=== PATIENT | female | born 1980 | race Caucasian/White ===

== ENCOUNTER → 2016-12-25 | Outpatient (CLI) | payer OTHER ==
[~2016-12-25] MED LIST: ACET-1256 PO; IBUP-1050 PO
== END | disposition home or self-care (01) ==
LOC: C.PAPS 11:51
PROVIDERS: ATTEND Obstetrics & Gynecology
DX: Z12.4 Encounter for screening for malignant neoplasm of cervix (principal)

== ENCOUNTER → 2017-05-29 | Outpatient (CLI) | payer OTHER ==
[2017-05-29 13:24] LABS: HEMATOCRIT 36.3 % (37-47); MEAN CELL VOLUME 76.3 fL (80-100); MEAN CORPUSCULAR HEMOGLOBIN 23.5 pg (25-34); MEAN CORPUSCULAR HGB CONC 30.9 g/dl (32-36); MEAN PLATELET VOLUME 10.9 fL (7.4-10.4); PLATELET COUNT 375 K/uL (130-400); RED BLOOD COUNT 4.76 M/uL (4.2-5.4); WHITE BLOOD COUNT 5.31 K/uL (4.8-10.8)
[2017-05-29 14:06] LABS: ALT/SGPT 118 U/L (12-78); BLOOD UREA NITROGEN 8 mg/dl (7-18); BUN/CREATININE RATIO 9.2 (10-20); CALCIUM 9.2 mg/dl (8.5-10.1); CARBON DIOXIDE 26 mmol/L (21-32); CHLORIDE 107 mmol/L (98-107); GLUCOSE 103 mg/dl (70-99); SODIUM 140 mmol/L (136-145); TRIGLYCERIDES 88 mg/dl (0-150); VERY LOW DENSITY LIPOPROT CALC 18 mg/dl
[2017-05-29 14:16] LABS: ALB/GLOB RATIO 0.9 (0.9-2); ALKALINE PHOSPHATASE 182 U/L (45-117); AST/SGOT 21 U/L (15-37); CHOLESTEROL 182 mg/dl (0-200); CHOLESTEROL/HDL RATIO 3.3; HDL CHOLESTEROL 55 mg/dl; LDL CHOLESTEROL CALCULATED 109 mg/dl; THYROID STIMULATING HORMONE 0.696 uIu/ml (0.300-4.500)
[2017-05-29 16:22] LABS: FERRITIN 5.2 ng/ml (8.0-388.0)
[2017-05-30 06:09] LABS: ESTIMATED AVERAGE GLUCOSE 120 mg/dl; HA1C FLAG Normal (Normal)
--- NOTE | 2017-06-11 06:46 | CODING QUERY MEDICAL NECESSITY ---
SUPPORTING DIAGNOSIS NEEDED Ritter ROE, A supporting diagnosis is required for the test/procedure performed on this patient in order for us to be reimbursed by the patient's insurance. Please provide a supporting diagnosis for the following test/procedure listed below next to the test name along with your signature. *If there is no additional diagnosis for this patient that would support the following test/procedure please document that below next to the test/procedure. Test(s)/Procedure(s) that require a supporting diagnosis: * [id number] HEMO A1C DIAGNOSIS: DATE OF SERVICE: 05/29/17 Provider Signature: Date: Thank you Bharat Waddell [facility] Information Management Once completed, please kindly fax back to [phone] For questions please call [phone]
== END | disposition home or self-care (01) ==
LOC: C.LABBC 09:26
PROVIDERS: ATTEND Nurse Practitioner Adult Health
DX: Z00.00 Encounter for general adult medical examination without abnormal findings (principal); F41.9 Anxiety disorder, unspecified; D64.9 Anemia, unspecified; R73.01 Impaired fasting glucose

== ENCOUNTER → 2017-06-29 | Outpatient (CLI) | payer OTHER ==
[2017-06-29 11:34] LABS: ALKALINE PHOSPHATASE 105 U/L (45-117); ALT/SGPT 31 U/L (12-78); AST/SGOT 16 U/L (15-37)
== END | disposition home or self-care (01) ==
LOC: C.LABBC 08:09
PROVIDERS: ATTEND Nurse Practitioner Adult Health
DX: R79.89 Other specified abnormal findings of blood chemistry (principal)

== ENCOUNTER → 2017-08-26 | Day surgery (SDC) | payer OTHER ==
[2017-08-17 10:46] VITALS: Ht 167.6 cm; Wt 95.5 kg
[~2017-08-26] VITALS: Ht 167.6 cm; Wt 95.5 kg
[~2017-08-26] MED LIST changes: -ACET-1256 PO; +ATR25 PO; +DICY10CA12 PO; +FERR1TAB13 PO; +FLUT0.15 NAE; -IBUP-1050 PO; +LIDOCAINE HCL 2% 2 ML VIAL (20MG/ML) ONE; +METH500T PO; +MIDAZOLAM HCL 1 MG/ML 2ML VIAL ONE; +ONDANSETRON INJ 2 MG/ML 2 ML VIAL ONE; +PROPOFOL IV EMULSION 10 MG/ML 20 ML VIAL IV ONE; +SODIUM CHLORIDE 0.9% 500ML 500 ML IV ONE; +VNTHFA/IN INH
--- NOTE | 2017-08-26 10:48 | Endo History and Physical ---
History & Physical Date of Service: Aug 26, 2017. Chief Complaint: Anemia and Diarrhea Referring Physician: Alysa Hamlin History of Present Illness 37 yo CF who presents for EGD and Colonoscopy secondary to anemia and diarrhea. Past Surgical History Hx Cardiac Surgery: No Hx Internal Defibrillator: No Hx Pacemaker: No Hx Abdominal Surgery: Yes (D&C) Hx of Implantable Prosthesis: No Hx Post-Op Nausea and Vomiting: No Hx Cancer Surgery: No Hx Thoracic Surgery: No Hx Orthopedic: No Hx Urinary Tract Surgery: Yes (LITHOTRIPSY) Family History None Social History Smoking Status: Former Smoker Hx Substance Use: Yes (MARIJUANA 3X/WEEK) Hx Alcohol Use: Yes (OCCASIONAL) Allergies Uncoded Allergies: NARCOTICS (Allergy, Unknown, GI UPSET, 08/17/17) Current Medications Reported Home Medications Medications Dose Route/Sig Max Daily Dose Days Date Category Ventolin Hfa (Albuterol) 200 Puffs/06501 Mcg Aers 2-4 Puffs INH Q6H PRN 08/17/17 Reported Flonase Allergy Relief (Fluticasone Propionate (Nasal)) 50 Mcg/Act Spr 2 Sprays JAVAN DAILY PRN 08/17/17 Reported Hydroxyzine HCl 25 Mg Tab 1 Tab PO DAILY PRN 08/17/17 Reported Robaxin (Methocarbamol) 500 Mg Tab 500 Mg PO TID PRN 08/17/17 Reported Kp Ferrous Sulfate (Ferrous Sulfate) 325 Mg Tab 1 Tab PO BID 08/17/17 Reported Dicyclomine Hcl 10 Mg Cap 1 Cap PO TID PRN 08/17/17 Reported Vital Signs Weight (Kilograms): 95.45 Height (Feet): 5 Height (Inches): 6 Physical Exam General Appearance: WD/WN, no apparent distress Respiratory/Chest: Auscultation: breath sounds normal Cardiovascular: Heart Auscultation: RRR Abdomen: Bowel Sounds: normal Inspection & Palpation: soft, non-distended, no tenderness, guarding & rebound Assessment and Plan Assessment: 37 yo CF who presents for EGD and Colonoscopy secondary to anemia and diarrhea. Plan: Proceed with EGD and colonoscopy.
[2017-08-26 10:52] VITALS: TEMP 36.7
--- NOTE | 2017-08-26 11:38 | GI REPORT ---
Procedure Date: 08/26/2017 10:45 AM Procedure: Colonoscopy Indications: Chronic diarrhea Medicines: Monitored Anesthesia Care Complications: No immediate complications. Estimated Blood Loss: Estimated blood loss: none. Procedure: Pre-Anesthesia Assessment: - Prior to the procedure, a History and Physical was performed, and patient medications and allergies were reviewed. The patient's tolerance of previous anesthesia was also reviewed. The risks and benefits of the procedure and the sedation options and risks were discussed with the patient. All questions were answered, and informed consent was obtained. Prior Anticoagulants: The patient has taken no previous anticoagulant or antiplatelet agents. ASA Grade Assessment: II - A patient with mild systemic disease. After reviewing the risks and benefits, the patient was deemed in satisfactory condition to undergo the procedure. After I obtained informed consent, the scope was passed under direct vision. Throughout the procedure, the patient's blood pressure, pulse, and oxygen saturations were monitored continuously. The Scope was introduced through the anus and advanced to the terminal ileum. The colonoscopy was performed without difficulty. The patient tolerated the procedure well. The quality of the bowel preparation was good. The terminal ileum, ileocecal valve, appendiceal orifice, and rectum were photographed. Findings: The perianal and digital rectal examinations were normal. Non-bleeding internal hemorrhoids were found during retroflexion. The hemorrhoids were small. Several random biopsies were obtained with cold forceps for histology in the entire colon. Fluid aspiration for cytology was performed in the entire colon. Impression: - Non-bleeding internal hemorrhoids. - Several random biopsies were obtained in the entire colon. - Fluid aspiration was performed. Recommendation: - Resume previous diet. - Continue present medications. - Repeat colonoscopy for surveillance based on pathology results. - Return to primary care physician as previously scheduled. Suman Patricia DO 08/26/2017 11:38:26 AM This report has been signed electronically. Note Initiated On: 08/26/2017 10:45 AM I attest to the content of the Intraoperative Record and orders documented therein, exceptions below
--- NOTE | 2017-08-26 11:41 | GI REPORT ---
Procedure Date: 08/26/2017 10:47 AM Procedure: Upper GI endoscopy Indications: Iron deficiency anemia Medicines: Monitored Anesthesia Care Complications: No immediate complications. Estimated Blood Loss: Estimated blood loss: none. Procedure: Pre-Anesthesia Assessment: - Prior to the procedure, a History and Physical was performed, and patient medications and allergies were reviewed. The patient's tolerance of previous anesthesia was also reviewed. The risks and benefits of the procedure and the sedation options and risks were discussed with the patient. All questions were answered, and informed consent was obtained. Prior Anticoagulants: The patient has taken no previous anticoagulant or antiplatelet agents. ASA Grade Assessment: II - A patient with mild systemic disease. After reviewing the risks and benefits, the patient was deemed in satisfactory condition to undergo the procedure. After obtaining informed consent, the endoscope was passed under direct vision. Throughout the procedure, the patient's blood pressure, pulse, and oxygen saturations were monitored continuously. The Scope was introduced through the mouth, and advanced to the second part of duodenum. The upper GI endoscopy was accomplished without difficulty. The patient tolerated the procedure well. Findings: The esophagus was normal. A small hiatus hernia was present. Localized moderate inflammation characterized by erosions was found in the gastric antrum. Biopsies were taken with a cold forceps for histology. The examined duodenum was normal. Impression: - Normal esophagus. - Small hiatus hernia. - Gastritis. Biopsied. - Normal examined duodenum. Recommendation: - Resume previous diet. - Continue present medications. - Await pathology results. - Return to primary care physician as previously scheduled. Suman Patricia DO 08/26/2017 11:40:53 AM This report has been signed electronically. Note Initiated On: 08/26/2017 10:47 AM I attest to the content of the Intraoperative Record and orders documented therein, exceptions below
[2017-08-26 12:07] VITALS: BP 131/87; PULSE 63; O2SAT 99
--- NOTE | 2017-08-26 12:12 | Anesthesiology Progress Note ---
Anesthesia Post Op Note Date & Time Aug 26, 2017 at 12:12 Vital Signs Pain Intensity: 0 Vital Signs Past 12 Hours Date Time Temp Pulse Resp B/P (MAP) Pulse Ox O2 Delivery O2 Flow Rate FiO2 08/26/17 12:07 63 16 131/87 (102) 99 Room Air 08/26/17 11:52 62 16 130/81 (97) 99 Room Air 08/26/17 11:37 73 16 111/79 (90) 98 Room Air 08/26/17 10:52 36.7 69 20 124/79 (94) 96 Room Air Notes Mental Status: alert / awake / arousable, participated in evaluation Pt Amnestic to Procedure: Yes Nausea / Vomiting: adequately controlled Pain: adequately controlled Airway Patency, RR, SpO2: stable & adequate BP & HR: stable & adequate Hydration State: stable & adequate Anesthetic Complications: no major complications apparent
--- NOTE | 2017-08-26 12:12 | Discharge Instructions ---
Endoscopy Patient Instructions Date / Procedure(s) Performed Aug 26, 2017. Colonoscopy, EGD Allergy Information Uncoded Allergies: NARCOTICS (Allergy, Unknown, GI UPSET, 08/17/17) Discharge Date / Findings Aug 26, 2017. EGD: Gastritis s/p biopsies, Hiatal hernia Colonoscopy: Random colon biopsies, Stool aspirate collected, Internal hemorrhoids Medication Instructions Stopped Medication(s): stopped iron on Thursday 1) Start Omeprazole 20mg by mouth each morning 1/2 hour prior to breakfast. 2) OK to resume all medications today as prescribed Reported Home Medications Medications Dose Route/Sig Max Daily Dose Days Date Category Ventolin Hfa (Albuterol) 200 Puffs/77270 Mcg Aers 2-4 Puffs INH Q6H PRN 08/17/17 Reported Flonase Allergy Relief (Fluticasone Propionate (Nasal)) 50 Mcg/Act Spr 2 Sprays JAVAN DAILY PRN 08/17/17 Reported Hydroxyzine HCl 25 Mg Tab 1 Tab PO DAILY PRN 08/17/17 Reported Robaxin (Methocarbamol) 500 Mg Tab 500 Mg PO TID PRN 08/17/17 Reported Kp Ferrous Sulfate (Ferrous Sulfate) 325 Mg Tab 1 Tab PO BID 08/17/17 Reported Dicyclomine Hcl 10 Mg Cap 1 Cap PO TID PRN 08/17/17 Reported Provider Instructions Activity Restrictions - No exercising or heavy lifting for 24 hours. - Do not drink alcohol the day of the procedure. - Do not drive a car or operate machinery until the day after the procedure. - Do not make any important decisions or sign important papers in 24 hours after the procedure. Following Day: - Return to full activity which may include returning to work/school. Diet Start your diet with liquids and light foods (jello, soup, juice, toast). Then eat your usual diet if not nauseated. Treatment For Common After Affects For mild abdominal pain, bloating, or excessive gas: - Rest - Eat lightly - Lie on right side Follow-Up Information Follow-up with Alysa ROE as scheduled Anesthesia Information What You Should Know You have had a procedure that required some medicine to reduce anxiety and discomfort. This treatment is called moderate sedation. After receiving the treatment, you may be sleepy, but you will be able to breathe on your own. The effects of the treatment may last for several hours. Follow these instructions along with Activity/Diet recommendations noted above: * Do NOT do anything where dizziness or clumsiness would be dangerous. * Rest quietly at home today, then you can be up and about tomorrow. * Have a responsible person stay with you the rest of today. * You may have had an I.V. today. If so, you may take the dressing off later today. Recommendations Call your doctor if: * Trouble breathing * Continuous vomiting for more than 24 hours * Temperature above 101 degrees * Severe abdominal pain or bloating * Pain not relieved by pain medicine ordered * There is increased drainage or redness from any incision * A large amount of rectal bleeding greater than 2-3 tablespoons. (If you had a polyp/s removed or have hemorrhoids, a small amount of blood - from the rectum is to be expected.) * You have any unanswered questions or concerns. IN THE EVENT OF A SERIOUS EMERGENCY, GO TO THE NEAREST EMERGENCY ROOM Your discharge instructions were prepared by provider Suman Patricia. Patient Instructions Signature Page Noris Reyes Patient (or Guardian) Signature/Date: I have read and understand the instructions given to me by my caregivers. Caregiver/RN/Doctor Signature/Date: The above-named patient and/or guardian has received patient instructions on this date. + Original Patient Signature Page (only) stays with chart. Please make copy for patient.
== END | disposition home or self-care (01) ==
LOC: C.GI 10:30
PROVIDERS: ATTEND Internal Medicine
DX: K52.9 Noninfective gastroenteritis and colitis, unspecified (principal); K64.8 Other hemorrhoids; K29.50 Unspecified chronic gastritis without bleeding; K44.9 Diaphragmatic hernia without obstruction or gangrene; D50.9 Iron deficiency anemia, unspecified; Z87.891 Personal history of nicotine dependence; Z79.899 Other long term (current) drug therapy; F41.9 Anxiety disorder, unspecified; E66.9 Obesity, unspecified; Z68.34 Body mass index [BMI] 34.0-34.9, adult; J45.909 Unspecified asthma, uncomplicated; D25.9 Leiomyoma of uterus, unspecified; N80.9 Endometriosis, unspecified

== ENCOUNTER → 2017-09-28 | Outpatient (CLI) | payer OTHER ==
[~2017-09-28] MED LIST changes: -LIDOCAINE HCL 2% 2 ML VIAL (20MG/ML) ONE; -MIDAZOLAM HCL 1 MG/ML 2ML VIAL ONE; -ONDANSETRON INJ 2 MG/ML 2 ML VIAL ONE; -PROPOFOL IV EMULSION 10 MG/ML 20 ML VIAL IV ONE; -SODIUM CHLORIDE 0.9% 500ML 500 ML IV ONE
[2017-09-28 13:32] LABS: BASO % 0.8 %; BASO ABS # 0.05 K/uL (0-0.2); EOS % 2.6 %; EOS ABS # 0.17 K/uL (0-0.5); HEMATOCRIT 34.1 % (37-47); HEMOGLOBIN 10.6 g/dL (12.0-16.0); IG# 0.02 K/uL (0.00-0.02); LYMPH % 27.1 %; LYMPH ABS # 1.79 K/uL (1.2-3.4); MEAN CORPUSCULAR HEMOGLOBIN 24.3 pg (25-34); MEAN CORPUSCULAR HGB CONC 31.1 g/dl (32-36); MEAN PLATELET VOLUME 10.5 fL (7.4-10.4); MONO % 6.1 %; NEUT % 63.1 %; NEUT ABS # 4.17 K/uL (1.4-6.5); PLATELET COUNT 404 K/uL (130-400); RED CELL DISTRIBUTION WIDTH CV 14.8 % (11.5-14.5); RED CELL DISTRIBUTION WIDTH SD 41.9 fL (36.4-46.3)
[2017-09-28 14:12] LABS: ALBUMIN 3.9 gm/dl (3.4-5.0); ALT/SGPT 58 U/L (12-78); AST/SGOT 24 U/L (15-37); BLOOD UREA NITROGEN 6 mg/dl (7-18); CALCIUM 8.8 mg/dl (8.5-10.1); CARBON DIOXIDE 26 mmol/L (21-32); CREATININE 0.73 mg/dl (0.60-1.20); GLUCOSE 104 mg/dl (70-99); POTASSIUM 3.9 mmol/L (3.5-5.1); SODIUM 136 mmol/L (136-145)
[2017-09-28 14:15] LABS: ALKALINE PHOSPHATASE 122 U/L (45-117); TOTAL PROTEIN 7.8 gm/dl (6.4-8.2)
== END | disposition home or self-care (01) ==
LOC: C.LABBC 11:29
PROVIDERS: ATTEND Physician Assistant
DX: D64.9 Anemia, unspecified (principal)

== ENCOUNTER 2017-10-16 15:50 | Emergency (ER) | payer OTHER ==
[~2017-10-16] VITALS: Ht 167.6 cm; Wt 96.0 kg
[2017-10-16 16:03] VITALS: TEMP 36.5; Ht 167.6 cm; Wt 96.0 kg
[2017-10-16] MEDS ORDERED: PRLSR20 PO (16:10)
--- NOTE | 2017-10-16 16:41 | DIAGNOSTIC IMAGING REPORT ---
L KNEE 3 VIEWS CLINICAL HISTORY: fall and twisted knee at work trauma. Pain. COMPARISON: None. DISCUSSION: The bones and joint spaces appear intact. There is no evidence of fracture, dislocation or bony disease. There is no evidence for soft tissue swelling. IMPRESSION: Negative study. The above report was generated using voice recognition software. It may contain grammatical, syntax or spelling errors. Electronically signed by: Deep Bal M.D. 10/16/2017 4:40 PM Dictated Date/Time: 10/16/2017 4:40 PM
[2017-10-16] MEDS ORDERED: HYDR-5688 PO (17:27)
[2017-10-16] MEDS ORDERED: ONDA4TAB10 SL (17:27)
[2017-10-16 17:50] VITALS: BP 136/93; PULSE 77; O2SAT 100
--- NOTE | 2017-10-16 21:55 | EMERGENCY ROOM VISIT NOTE ---
ED Visit Note First contact with patient: 16:07 Chief Complaint: Left knee pain. History of Present Illness: Ms. Reyes is a 37-year-old white female who was brought into the ED accompanied by male friend complaining of medial left knee pain. Historically patient denies any previous significant knee injuries/surgeries. Patient reports approximately 2 hours ago she was at work. She reports she was placing something in a walk-in refrigerator. She slept and fell and twisted her left knee and it was slightly entrapped under a food rack. She was able to extricate herself and when she did she reports she had severe medial left knee pain. Since that time her pain has been constant. Currently she describes her pain as a pressure and throbbing sensation over the medial joint line. She rates her discomfort 10/10. The pain is nonradiating. The pain worsens with flexion beyond 30, the last few degrees of extension, hyperextension, ambulation and palpation. She has not identified any alleviating factors related to the pain. She has not taken any medications for pain prior to arrival at the hospital. She denies any associated symptoms including back pain, hip pain, thigh pain, lower leg pain, ankle pain, foot pain , leg weakness/numbness/tingling. Review of Systems: As noted above in history of present illness. 8 body systems were reviewed and found to be negative as noted above. Past Medical History: Anemia, gastrointestinal bleeds, irritable bowel syndrome , migraine headaches, unspecified skin disorder, asthma, kidney stones, unspecified dental surgery. Current Medications: Dicyclomine, ferrous sulfate, Robaxin, Flonase, albuterol, Prilosec. Allergies to Medications: Narcotics; nausea/vomiting. Social History: Patient is currently employed; she feels safe in her home environment; she denies tobacco use; she admits to alcohol use. Physical Examination: Vital Signs: Date Time Temp Pulse Resp B/P (MAP) Pulse Ox O2 Delivery O2 Flow Rate FiO2 10/16/17 17:50 77 20 136/93 100 10/16/17 16:03 36.5 77 20 136/91 100 Room Air GENERAL: 37-year-old female in moderate distress due to pain, nontoxic-appearing , afebrile and hemodynamically stable. NEUROLOGICAL: Awake, alert and oriented to person, place and time. Answering questions appropriately and following commands. Good hand eye coordination. No focal motor or sensory deficits. SKIN: Warm, dry and pink. No soft tissue trauma noted. LEFT LOWER EXTREMITY: No gross bony deformity. No shortening or malrotation. No tenderness in the hip, thigh, lower leg, ankle or foot. Moderate tenderness over the medial aspect of the knee with mild swelling but no bony deformity or crepitus. Because of the level of her pain she was difficult to assess but there appeared to be mild ligamentous laxity over the medial collateral ligament. There was no laxity of the cruciate or the lateral collateral ligament. Decreased range of motion in the hip to pain as well as a decrease in extension and hyperextension of the knee. Throughout the lower legs the skin was warm and pink and capillary refill is brisk. She is able to distinguish light sensations to all dermatomes. ED Course: Patient is assessed as noted above. Patient's medication list was reviewed. Patient was given ice for pain and comfort. Left Knee X-Rays: Were read by myself and the radiologist showing no acute fractures or dislocations. No joint effusion. Patient was placed in a knee immobilizer and on nonweightbearing crutches. Patient was educated about today's findings and instructed on her treatment plan ; she verbalizes understanding and agreement with this plan. Clinical Impression: Left knee pain. Possible strain of the medial collateral ligament. Work-related injury. Disposition: Patient discharged home in stable condition accompanied by male friend; prior to departure she was reassessed and subjectively reported she was feeling better and rated her discomfort 6/10. Plan: Comfort measures were discussed with the patient including rest, ice, splint and crutches and she was placed on a sliding pain medication scale of ibuprofen , acetaminophen and [place]; she was given appropriate narcotic precautions and her name was checked in the state database and no red flags are noted. Patient was signed of work for 3 days. Patient was encouraged to follow-up with Workmen's Compensation for recheck within 3 days and Workmen's Compensation would give her return to work instructions and/or orthopedic follow-up. Patient was encouraged to return the ED for worsening/uncontrolled pain, uncontrolled swelling, leg weakness/numbness/tingling or any new/concerning symptoms.
== END 2017-10-16 17:50 | disposition home or self-care (01) ==
LOC: C.EDB 15:52 → C.EDD 17:50
DX: M25.562 Pain in left knee (principal); W01.0XXA Fall on same level from slipping, tripping and stumbling without subsequent striking against object, initial encounter; J45.909 Unspecified asthma, uncomplicated; K21.9 Gastro-esophageal reflux disease without esophagitis; F10.99 Alcohol use, unspecified with unspecified alcohol-induced disorder; Z88.5 Allergy status to narcotic agent

== ENCOUNTER → 2018-01-05 | Outpatient (CLI) | payer OTHER ==
[~2018-01-05] MED LIST changes: -ATR25 PO; +HYDR-5688 PO; +ONDA4TAB10 SL; +PRLSR20 PO
[2018-01-05 13:35] LABS: BASO % 0.5 %; BASO ABS # 0.03 K/uL (0-0.2); EOS % 3.4 %; HEMATOCRIT 40.2 % (37-47); HEMOGLOBIN 13.2 g/dL (12.0-16.0); IG# 0.01 K/uL (0.00-0.02); LYMPH % 23.9 %; LYMPH ABS # 1.41 K/uL (1.2-3.4); MEAN CELL VOLUME 81.9 fL (80-100); MEAN CORPUSCULAR HEMOGLOBIN 26.9 pg (25-34); MEAN CORPUSCULAR HGB CONC 32.8 g/dl (32-36); MEAN PLATELET VOLUME 10.9 fL (7.4-10.4); MONO % 7.1 %; MONO ABS # 0.42 K/uL (0.11-0.59); NEUT % 64.9 %; NEUT ABS # 3.82 K/uL (1.4-6.5); PLATELET COUNT 297 K/uL (130-400); RED CELL DISTRIBUTION WIDTH SD 68.1 fL (36.4-46.3); WHITE BLOOD COUNT 5.89 K/uL (4.8-10.8)
== END | disposition home or self-care (01) ==
LOC: C.LABBC 09:02
PROVIDERS: ATTEND Family Medicine
DX: D50.0 Iron deficiency anemia secondary to blood loss (chronic) (principal)

== ENCOUNTER → 2018-04-27 | Outpatient (CLI) | payer OTHER ==
[~2018-04-27] MED LIST changes: -DICY10CA12 PO; -FERR1TAB13 PO; +FEXO1TAB46 PO; -FLUT0.15 NAE; -HYDR-5688 PO; -METH500T PO; -ONDA4TAB10 SL; +OXYC-90 PO
== END | disposition home or self-care (01) ==
LOC: C.PAPS 13:37
PROVIDERS: ATTEND Obstetrics & Gynecology
DX: Z12.4 Encounter for screening for malignant neoplasm of cervix (principal)